=== PATIENT | male | born 1980 | race African-American/Black ===

== ENCOUNTER 2019-01-06 15:44 | Emergency (ER) | payer SELFPAY ==
[~2019-01-06] VITALS: Ht 177.8 cm; Wt 68.0 kg
[2019-01-06] MEDS ORDERED: SODIUM CHLORIDE 0.9% 1,000 ML IV ONE (16:09)
[2019-01-06] MEDS ORDERED: MORPHINE SULFATE 4 MG/ML CPJ (NOT FOR IM USE) IV STA (16:09)
[2019-01-06] MEDS ORDERED: ONDANSETRON HCL 4MG/2ML INJ IV STA (16:09)
[2019-01-06 16:23] LABS: BASOPHILS % 0.6 % (0.0-2.0); HEMATOCRIT. 42.3 % (42.0-52.0); LYMPHOCYTES % 10.4 % (20.0-50.0); MEAN CORPUSCULAR HEMOGLOBIN 30.8 pg (28.0-32.0); MEAN CORPUSCULAR VOLUME 92.8 fL (80.0-94.0); MEAN PLATELET VOLUME 8.2 fl (7.4-10.4); MONOCYTES % 4.6 % (2.0-8.0); NEUTROPHILS % 84.4 % (40.0-76.0); PLATELET 161 x1000/uL (130-400); RED BLOOD CELL COUNT 4.55 mill/uL (4.7-6.1); RED CELL DISTRIBUTION WIDTH 13.7 % (11.6-14.6)
[2019-01-06 16:28] LABS: CHLORIDE 106 mEq/L (98-107); PROTHROMBIN TIME 10.8 sec (9.6-11.0)
[2019-01-06] MEDS ORDERED: KETOROLAC 30MG/ML VIAL IV ONE (18:45)
[2019-01-06 20:41] VITALS: BP 114/89
== END 2019-01-06 20:45 | disposition home or self-care (01) ==
LOC: ER 15:44
DX: R11.2 Nausea with vomiting, unspecified (principal); R10.84 Generalized abdominal pain; F12.10 Cannabis abuse, uncomplicated
CPT/HCPCS: 36415; 74018; 80053; 83690; 85025; 85610; 96361; 96374; 96375; 99284; J1885; J2270; J2405; J7030